=== PATIENT | male | born 1990 | race Caucasian/White ===

== ENCOUNTER 2022-12-15 08:01 | Emergency (ER) | payer OTHER, SELFPAY ==
[2022-12-15 08:13] VITALS: BP 146/104; PULSE 67; RESP 16; TEMP 36.5; O2SAT 99
--- NOTE | 2022-12-15 08:13 | ED.GENADULT ---
HPI - General Adult General Chief complaint: Extremity Injury, Upper Stated complaint: Rt Underarm Pain Time Seen by Provider: 12/15/22 08:19 Source: patient, RN notes reviewed and old records reviewed Mode of arrival: ambulatory Limitations: no limitations History of Present Illness HPI narrative: 32 year old male who presents to [facility] with complaints of swelling and redness, warmth, with pain to the right axilla for 3 day duration.Patient reports that he has been applying warm compresses to his right axilla and applied some Neosporin ointment. Patient reports that he has had previous boils that he has had to have drained in the past,denies any fevers, chills or sweats. MD complaint: abscess right axilla Onset (ago): day(s) (3) Location: right and upper extremity (axilla) Severity scale (1-10): 7 Quality: sharp and constant Treatments prior to arrival: other (warm compresses) Related Data Home Medications Medication Instructions Recorded Confirmed lisinopril 10 mg tablet 10 mg PO DAILY 12/15/22 12/15/22 Allergies Allergy/AdvReac Type Severity Reaction Status Date / Time amoxicillin Allergy Unknown Verified 12/15/22 08:12 Review of Systems Review of Systems: CONSTITUTIONAL: Denies fever, chills, or sweats. CARDIOVASCULAR: Denies chest pain, palpitations, or edema. RESPIRATORY: Denies acute cough or dyspnea. GASTROINTESTINAL: Denies abdominal pain, nausea, vomiting SKIN: Reports redness and swelling to right axilla,tenderness on palpation small pustule noted in area of redness, no present drainage. MUSCULOSKELETAL: Denies myalgia. NEUROLOGIC: Denies headache, numbness All systems reviewed & are unremarkable except as noted in HPI and below [facility] Past Medical History Medical History (Updated 12/16/22 @ 08:17 by Julisa Barker NP) Asthma Hypertension Social History Social History (Updated 12/16/22 @ 08:18 by Julisa Barker NP) Smoking status: Current every day smoker Tobacco type: cigarettes Alcohol intake: current Alcohol use details: social Substance use type: does not use Gender identity (if verbalized by the patient): Male Comments At time of signature, agree with nursing past medical, surgical, social and family history. There is no relevant family history pertinent to the presenting complaint Exam Narrative: GENERAL: Well-appearing, well-nourished, and in no acute distress. HEAD: Normocephalic, atraumatic. EYES: PERRLA and EOMI. ENT: Nares clear, no rhinorrhea or epistaxis. Mucous membranes moist.TM's normal throat pink with no swelling. NECK: Supple.no lymphadenopathy CHEST: Clear to auscultation. No respiratory distress.SAO2 99% on room air HEART: Regular rate and rhythm. No murmur heard. Normal peripheral pulses. ABDOMEN: Soft, nontender, nondistended, normal active bowel sounds. EXTREMITIES: Normal range of motion. No edema. SKIN: Warm, dry. Erythema, induration, tenderness, warmth to right axilla. Patient has 2cm diameter area of redness with small pustule in center. NEURO: No focal deficits. Alert and oriented x3. Course Course Emergency Course: Patient is aware of diagnosis, understands and agrees to treatment plan. Anticipatory guidance given. Patient agrees to follow-up as directed and is aware of reasons to seek care at the emergency department. Portions of this record may have been created with voice recognition software Level of Care: Express Care Visit Vital Signs Vital signs: Vital Signs Temperature 36.5 C 12/15/22 08:13 Pulse Rate 67 12/15/22 08:13 Respiratory Rate 16 12/15/22 08:13 Blood Pressure 146/104 H 12/15/22 08:13 Pulse Oximetry 99 12/15/22 08:13 Oxygen Delivery Room Air 12/15/22 08:13 Temperature 36.5 C 12/15/22 08:13 Pulse Rate 67 12/15/22 08:13 Respiratory Rate 16 12/15/22 08:13 Blood Pressure 147/97 H 12/15/22 08:55 Pulse Oximetry 99 12/15/22 08:13 Oxygen Delivery Room Air 12/15/22 08
[2022-12-15 08:55] VITALS: BP 147/97
== END 2022-12-15 08:50 | disposition home or self-care (01) ==
PROVIDERS: Emergency Provider Registered Nurse
DX: L02.411 Cutaneous abscess of right axilla (principal); I10 Essential (primary) hypertension; J45.909 Unspecified asthma, uncomplicated; F17.210 Nicotine dependence, cigarettes, uncomplicated
CPT/HCPCS: 87070; 87075; 87205; 99203; G0463